=== PATIENT | male | born 1970 | race African-American/Black ===

== ENCOUNTER 2022-03-23 16:55 | Emergency (ER) | payer BC ==
[~2022-03-23 16:55] MED LIST: Iopamidol 370 76% 100 ML VIAL ONE
[2022-03-23] MEDS ORDERED: Morphine 4 MG/ML VIAL ONE (17:21)
[2022-03-23 17:24] LABS: #Basophils 0.1 thou/uL (0.0-0.2); #Eosinphils 0.1 thou/uL (0.0-0.7); #Lymphocytes 2.1 thou/uL (1.20-3.40); #Monocytes 0.6 thou/uL (0.11-0.59); #Neutrophils 2.3 thou/uL (1.40-6.50); %Basophils 1.4 % (0.0-1.0); %Eosinophils 1.7 % (0.0-10.0); %Lymphocytes 41.1 % (21.0-51.0); %Monocytes 10.9 % (0.0-10.0); %Neutrophils 44.9 % (42.0-75.0); Hemoglobin 17.4 g/dL (14.0-18.0); Mean Corpuscular Hemoglobin 29.7 pg (27.0-31.0); Mean Corpuscular Volume 89.9 fL (78.0-98.0); Mean Platelet Volume 7.3 fL (7.4-10.4); Platelet Count 193 thou/uL (130-400); RBC Distribution Width 12.9 % (11.5-14.5); Red Blood Cell (RBC) Count 5.88 mill/uL (4.70-6.10); White Blood Cell (WBC) Count 5.2 thou/uL (4.8-10.8)
[2022-03-23 17:48] LABS: Troponin I Less than 0.010 ng/mL (< 0.028)
[2022-03-23] MEDS ORDERED: Fentanyl 100 MCG/2 ML VIAL ONE (17:55)
[2022-03-23 17:59] LABS: ALT (SGPT) 35 U/L (8-55); AST (SGOT) 30 U/L (5-34); Albumin 4.3 g/dL (3.5-5.0); Alkaline Phosphatase 104 U/L (40-110); Anion Gap 13 mmol/L (10-20); BUN (Urea Nitrogen) 14 mg/dL (8.4-25.7); Calc. Creatinine Clearance 0 mL/min (70-130); Carbon Dioxide 25 mmol/L (22-29); Chloride 103 mmol/L (98-107); Estimated GFR 53; Glucose 91 mg/dL (70-105); Lipase 62 U/L (8-78); Potassium 3.9 mmol/L (3.5-5.1); Protein, Total 7.3 g/dL (6.0-8.3); Sodium 137 mmol/L (136-145)
== END 2022-03-23 19:21 | disposition home or self-care (01) ==
LOC: ERS 16:55
DX: R07.89 Other chest pain (principal); R10.32 Left lower quadrant pain; R10.12 Left upper quadrant pain
CPT/HCPCS: 70450; 71260; 74177; 80053; 83690; 84484; 85025; 96374; 96375; J2270; J3010; Q9967